=== PATIENT | male | born 1990 | race Caucasian/White ===

== ENCOUNTER 2021-05-15 13:22 | Emergency (ER) | payer OTHER ==
[~2021-05-15] VITALS: Ht 177.8 cm; Wt 113.4 kg
[2021-05-15] MEDS ORDERED: MEDROLDOSEPACK PO (15:07)
[2021-05-15] MEDS ORDERED: NAPROSYN500 MG PO (15:07)
[2021-05-15] MEDS ORDERED: APAP W/CODEINE1 TA2 PO (15:07)
[2021-05-15 15:20] VITALS: BP 140/84
== END 2021-05-15 15:20 | disposition home or self-care (01) ==
LOC: M.ERS 13:22
DX: M54.5 Low back pain (principal)